=== PATIENT | female | born 1985 | race Caucasian/White ===

== ENCOUNTER 2024-03-02 18:00 | Emergency (ER) | payer MEDICAID, OTHER ==
[~2024-03-02] VITALS: Ht 154.9 cm; Wt 79.4 kg
[2024-03-02 18:04] VITALS: BP 112/73; PULSE 71; RESP 16; TEMP 98; O2SAT 100
[2024-03-02 19:11] LABS: BASOPHILS % (AUTO) 0.8 % (0.0-2.0); EOSINOPHILS # (AUTO) 0.1 K/uL (0-0.4); EOSINOPHILS % (AUTO) 1.9 % (0.0-4.0); HEMATOCRIT 35.7 % (36-48); HEMOGLOBIN 11.7 g/dL (12.0-16.0); LYMPHOCYTES # (AUTO) 2.2 K/uL (2.5-16.5); LYMPHOCYTES % (AUTO) 39.7 % (20.5-51.1); MEAN CORPUSCULAR HEMOGLOBIN 29 pg (27-31); MEAN CORPUSCULAR HGB CONC 33 g/dL (33-37); MEAN CORPUSCULAR VOLUME 87.5 fL (80-94); MONOCYTES # (AUTO) 0.6 K/uL (0.8-1.0); MONOCYTES % (AUTO) 11.3 % (1.7-9.3); NEUTROPHILS # (AUTO) 2.6 K/uL (1.8-7.7); NEUTROPHILS % (AUTO) 46.3 % (42.2-75.2); PLATELET COUNT (AUTO) 239 K/uL (140-450); RED BLOOD CELL COUNT(AUTO) 4.08 MIL/uL (4.20-5.40); RED CELL DISTRIBUTION WIDTH 13.6 % (11.6-13.7); WHITE BLOOD COUNT (AUTO) 5.5 K/uL (4.8-10.8)
[2024-03-02 19:35] VITALS: PULSE 65
[2024-03-02 19:37] LABS: BILIRUBIN,URINE NEGATIVE (NEGATIVE); BLOOD, URINE NEGATIVE (NEGATIVE); COLOR,URINE YELLOW (YELLOW); LEUKOCYTE ESTERASE ,URINE 1+ (NEGATIVE); NITRITE, URINE NEGATIVE (NEGATIVE); PROTEIN,URINE NEGATIVE (NEGATIVE); UGLUCOSE NEGATIVE (NEGATIVE); UROBILINOGEN,URINE 0.2 EU/dL (0.2 - 1)
[2024-03-02 19:40] LABS: ALBUMIN 3.1 g/dL (3.4-5.0); BILIRUBIN,DIRECT 0.1 mg/dL (0.0-0.3); TOTAL BILIRUBIN 0.2 mg/dL (0.0-1.0)
[2024-03-02 19:41] LABS: APPEARANCE,URINE SLIGHTLY HAZY (CLEAR)
[2024-03-02 19:44] LABS: CALCIUM 7.9 mg/dL (8.5-10.1); CARBON DIOXIDE 29.2 mmol/L (21-32); CREATININE 0.8 mg/dL (0.6-1.3); POTASSIUM 3.2 mmol/L (3.5-5.1)
[2024-03-02 19:50] LABS: ALCOHOL, BLOOD < 3 mg/dL (<10)
[2024-03-02 19:53] LABS: AMPHETAMINE, URINE NEGATIVE ng/ml (NEG <=1000); BARBITURATE, URINE NEGATIVE ng/ml (NEG <=200); BENZODIAZEPINE, URINE POSITIVE ng/mL (NEG <=200); CANNABINOID, URINE NEGATIVE ng/mL (NEG <=50); COCAINE, URINE NEGATIVE ng/mL (NEG <=300); PHENCYCLIDINE SCREEN,URINE NEGATIVE ng/mL (NEG <=25)
[2024-03-02 19:54] LABS: OPIATE, URINE NEGATIVE ng/mL (NEG <=2000)
[2024-03-02 19:58] LABS: ASPARTATE AMINOTRANSFERASE 19 U/L (15-37)
[2024-03-02 19:59] LABS: BACTERIA,URINE 2+ /HPF (None Seen); MUCUS,URINE 2+ /LPF (None Seen); RBC,URINE 0-5 /HPF (0-5); SQUAMOUS EPITHELIAL CELL,UR 4-10 (MOD) /LPF (0-3 (FEW))
[2024-03-02 20:00] LABS: ACETAMINOPHEN 11.2 ug/ml (10-30); ALKALINE PHOSPHATASE 94 U/L (50-136); SALICYLATE < 2.8 mg/dL (2.8-20.0)
[2024-03-02 20:07] LABS: ALANINE AMINOTRANSFERASE 30 U/L (12-78); TOTAL PROTEIN, SERUM 6.4 g/dL (6.4-8.2)
[2024-03-02 21:45] VITALS: O2SAT 99
[2024-03-03] MEDS: HYDROXYZINE HYDROCHLORIDE 25 MG TAB PO ONE (00:48)
[2024-03-03] MEDS ORDERED: WATER STERILE 10 ML MC ONE (01:57)
[2024-03-03] MEDS: OLANZapine 10 MG VIAL IM ONE (02:00)
[2024-03-03 02:59] VITALS: O2SAT 99
[2024-03-03 05:20] VITALS: O2SAT 99
[2024-03-03 08:00] VITALS: O2SAT 99
[2024-03-03 09:00] VITALS: BP 91/57; RESP 16; TEMP 97.7; O2SAT 99
[2024-03-03] MEDS: busPIRone 5 MG TAB PO SCH (09:54)
[2024-03-03] MEDS ORDERED: ESCITALOPRAM 20 MG TAB PO SCH (17:00)
== END 2024-03-03 11:58 | disposition short-term general hospital (02) ==
LOC: MED 18:00
DX: R45.851 Suicidal ideations (principal); Z20.822 Contact with and (suspected) exposure to COVID-19; J45.909 Unspecified asthma, uncomplicated; F41.9 Anxiety disorder, unspecified; E78.5 Hyperlipidemia, unspecified; Z88.8 Allergy status to other drugs, medicaments and biological substances
CPT/HCPCS: 36415; 80048; 80076; 80305; 81001; 81025; 85025; 87086; 87426; 96372; 99285; G0480; G0482; J3490